=== PATIENT | female | born 2000 | race Two or more races ===

== ENCOUNTER 2024-03-18 18:59 | Inpatient (IN) | payer OTHER, SELFPAY ==
[2024-03-18 19:46] VITALS: BMI 24.1
[2024-03-18 19:49] VITALS: BP 115/68; PULSE 88; RESP 18; TEMP 36.6; O2SAT 100
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
[2024-03-19] MEDS: Acetaminophen 325 MG TABLET 650 MG PO (07:05)
[2024-03-19] MEDS: Nicotine 21 MG PATCH.TD24 TRANSDERMA (07:05)
[2024-03-19] MEDS: hydrOXYzine HCL 25 MG TABLET PO (07:09)
[2024-03-19 08:30] VITALS: BP 127/88; PULSE 96; RESP 16; TEMP 36.4; O2SAT 98
[2024-03-19 08:54] LABS: Estimated Average Glucose 88 mg/dL; Hemoglobin A1c % 4.7 % (<6.0)
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
[2024-03-19 09:05] LABS: Cholesterol 234 mg/dL (<200); HDL Cholesterol 100 mg/dL (>40); LDL Cholesterol Calculated 98 mg/dL (<100); Triglycerides 181 mg/dL (<150)
[2024-03-19 09:16] LABS: Free T4 (Free Thyroxine) 1.12 ng/dL (0.71-1.85); Thyroid Stimulating Hormone 0.88 uIU/mL (0.32-4.0)
[2024-03-19 10:06] LABS: Folate 6.8 ng/mL (> or = 4.0); Vitamin B12 234 pg/mL (200-900)
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
[2024-03-20] MEDS: Nicotine 21 MG PATCH.TD24 TRANSDERMA (06:17)
[2024-03-20 08:00] VITALS: BP 129/78; PULSE 93; RESP 16; TEMP 36.2; O2SAT 96
--- NOTE | 2024-03-20 14:43 | HO.PSYCHPN ---
Subjective Subjective Date of Service: 03/20/24 Reason For Visit: Generalized anxiety d/o, opioid use d/o, MDD Subjective Notes: Conditional Voluntary Healthcare Proxy: No Guardianship: No Medical Problems Affecting Mental Status: No Interim History: Pt denies SI/HI/AH/VH. No sx of vidal, psychosis Goat oriented, thinking about her future and reconnecting with her community. Tells team she would like to trial a med for anxiety-will trial clonidine prn. Review of safety planning and resources. Planning discharge for 03/21/24. Medication Compliance: No Side effects from medications: No Attending Groups: Yes Review of Systems Acute medical concerns: No Medical Review of Systems: unchanged Review of Systems Review of Systems Yes all other systems are reviewed and are negative Mental Status Exam Mental Status Exam Patient Appearance: Appropriate Patient Orientation: Person, Place, Time and Situation Level of Consciousness: Alert Patient Behavior: Appropriate, Talkative, Cooperative and Good Eye Contact Mood Description: Appropriate Affect Description: Appropriate Patient Cognition Impaired: No Ability to Follow Directions: Good Speech Pattern: Spontaneous Speech Memory Description: Intact Hallucinations: None Delusions: Not Present Perceptual Disturbances: Depersonalization and Derealization Thought Process: Intact and Goal Oriented Thought Content: positive for Intact, positive for Goal Oriented and positive for Suicidal Ideation (denies) Depressive Symptoms: Thoughts of /Suicide (denies) Judgement: Good Diagnostics Vital Signs (24Hr): Vital Signs - 24 hr 03/20/24 08:00 Temperature 97.2 F Pulse Rate 93 Respiratory Rate 16 Blood Pressure 129/78 Pulse Oximetry 96 Oxygen Delivery Method Room Air BMI result Body Mass Index 24.1 Labs Labs: Laboratory Results - last 48 hr 03/19/24 08:10 Estimat Average Glucose 88 Hemoglobin A1c % 4.7 Magnesium 2.0 Triglycerides 181 H Cholesterol 234 H LDL Cholesterol, Calc 98 HDL Cholesterol 100 Vitamin B12 234 Folate 6.8 TSH 0.88 Free T4 1.12 Medications Medications Current Medications Acetaminophen (Acetaminophen 325 Mg Tablet) 650 mg PO Q6H PRN PRN Reason: Headache/Pain Mild Scale (1-3) Last Admin: 03/19/24 07:05 Dose: 650 mg Al Hydroxide/Mg Hydroxide (Magnesium Hydrox/Alum Hydrox 30 Ml Oral.Susp) 30 ml PO Q6H PRN PRN Reason: Heartburn/Nausea Hydroxyzine HCl (Hydroxyzine Hcl 25 Mg Tablet) 25 mg PO Q6H PRN PRN Reason: Anxiety Last Admin: 03/19/24 07:09 Dose: 25 mg Magnesium Hydroxide (Milk Of Magnesia 30 Ml Oral.Susp) 30 ml PO DAILY PRN PRN Reason: Constipation Nicotine (Nicotine 21 Mg Patch.Td24) 21 mg TRANSDERMA DAILY PRN PRN Reason: nicotine cravings Last Admin: 03/20/24 06:17 Dose: 21 mg Nicotine Polacrilex (Nicotine Polacrilex 2 Mg Gum) 4 mg BUCCAL Q2H PRN PRN Reason: Nicotine Cravings Trazodone HCl (Trazodone Hcl 50 Mg Tablet) 50 mg PO BEDTIME MRX1 PRN PRN Reason: Insomnia Allergies Allergies Allergy/AdvReac Type Severity Reaction Status Date / Time pollen extracts Allergy Unknown Itchy Eyes Unverified 03/19/24 02:05 Assessment & Plan Assessment & Plan (1) PTSD (post-traumatic stress disorder): Status: Acute Code(s): F43.10 - Post-traumatic stress disorder, unspecified (2) Recurrent major depression: Status: Acute Code(s): F33.9 - Major depressive disorder, recurrent, unspecified (3) Opioid use disorder: Status: Acute Code(s): F11.90 - Opioid use, unspecified, uncomplicated (4) Polysubstance use disorder: Status: Acute Code(s): F19.90 - Other psychoactive substance use, unspecified, uncomplicated Plan PTSD, Recurrent MDD, Opiate Use Disorder, Polysubstance Use Disorder. Plan: Admit, 12B to CV, 15 minute checks Full milieu encouraged Pt declines meds Aftercare planning 03/20: Clonidine 0.1 mg bid prn anxiety sx trial Discharge 03/21/24. Reason for continued inpatient stay Substantial Risk for: rapid decompensation Time Spent With Patient Time: Total time managing care of this patient today ____ minutes.
[2024-03-20] MEDS: hydrOXYzine HCL 25 MG TABLET PO ×2 (15:02→20:58)
[2024-03-20 15:42] VITALS: BP 125/79
[2024-03-20] MEDS: cloNIDine HCL 0.1 MG TABLET PO (15:42)
[2024-03-20 20:00] VITALS: BP 105/66; PULSE 82; RESP 16; TEMP 37; O2SAT 99
[2024-03-20] MEDS: traZODone HCL 50 MG TABLET PO (20:54)
[2024-03-21] MEDS: Acetaminophen 325 MG TABLET 650 MG PO (04:36)
[2024-03-21] MEDS: Nicotine 21 MG PATCH.TD24 TRANSDERMA (07:32)
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
== END 2024-03-21 11:49 | disposition home or self-care (01) | DRG 751 ==
PROVIDERS: Admitting Provider Clinical Nurse Specialist Psychiatric/Mental Health, Adult; PCP Internal Medicine; Visit Provider Clinical Nurse Specialist Psychiatric/Mental Health, Adult
DX: F33.9 Major depressive disorder, recurrent, unspecified (principal); F11.90 Opioid use, unspecified, uncomplicated; F43.10 Post-traumatic stress disorder, unspecified; F19.90 Other psychoactive substance use, unspecified, uncomplicated; F17.210 Nicotine dependence, cigarettes, uncomplicated; Z71.6 Tobacco abuse counseling; Z91.52 Personal history of nonsuicidal self-harm; Z91.414 Personal history of adult intimate partner abuse
CPT/HCPCS: 36415; 80061; 82607; 82746; 83036; 83735; 84439; 84443

== ENCOUNTER → 2024-03-18 18:59 | Outpatient (BNV) | payer OTHER, SELFPAY | PROVIDERS: Admitting Provider Clinical Nurse Specialist Psychiatric/Mental Health, Adult; PCP Internal Medicine; Visit Provider Physician Assistant | DX: Z02.2 Encounter for examination for admission to residential institution (principal); S61.511A Laceration without foreign body of right wrist, initial encounter; X78.9XXA Intentional self-harm by unspecified sharp object, initial encounter | CPT/HCPCS: 99429 ==

== ENCOUNTER → 2024-03-18 18:59 | Outpatient (BNV) | payer OTHER, SELFPAY | PROVIDERS: Admitting Provider Clinical Nurse Specialist Psychiatric/Mental Health, Adult; PCP Internal Medicine; Visit Provider Clinical Nurse Specialist Psychiatric/Mental Health, Adult | DX: F33.2 Major depressive disorder, recurrent severe without psychotic features (principal); F43.11 Post-traumatic stress disorder, acute; F11.90 Opioid use, unspecified, uncomplicated | CPT/HCPCS: 99231; 99232 ==